=== PATIENT | female | born 1970 | race Caucasian/White ===

== ENCOUNTER 2018-11-17 09:12 | Emergency (ER) | payer OTHER ==
[~2018-11-17] VITALS: Ht 157.5 cm; Wt 65.3 kg
[2018-11-17 09:18] VITALS: Ht 157.5 cm; Wt 65.3 kg
[2018-11-17 10:06] LABS: BASOPHIL % 0.7 % (0-2); PLATELET COUNT 289 x10^3mcL (130-400); RED CELL DISTRIBUTION WIDTH 13.9 % (11.5-14.5)
[2018-11-17 10:20] LABS: CALCIUM 9.4 mg/dL (8.5-10.1); CARBON DIOXIDE 23.4 mmol/L (21-32); CHLORIDE SERUM 106 mmol/L (98-107); CREATININE SERUM 0.6 mg/dL (0.6-1.0); GFR1 > 60 mL/min; GLUCOSE SERUM 154 mg/dL (74-106); SODIUM SERUM 141 mmol/L (136-145)
[2018-11-17 10:24] LABS: ALKALINE PHOSPHATASE 120 U/L (46-116); ALT/SGPT 18 U/L (14-59); AST/SGOT 11 U/L (15-37); LIPASE 48 IU/L (73-393); TOTAL PROTEIN, SERUM 6.8 g/dL (6.4-8.2)
[2018-11-17 10:28] LABS: ALBUMIN 3.2 g/dL (3.4-5.0)
[2018-11-17 11:26] VITALS: BP 110/75
== END 2018-11-17 11:26 | disposition home or self-care (01) ==
LOC: ED 09:12
PROVIDERS: Emergency Medicine
DX: R10.13 Epigastric pain (principal); E11.9 Type 2 diabetes mellitus without complications; Z85.028 Personal history of other malignant neoplasm of stomach
CPT/HCPCS: J2270; J2405; J7030